=== PATIENT | female | born 1990 | race Caucasian/White ===

== ENCOUNTER 2017-07-18 18:44 | Emergency (ER) | payer MEDICAID ==
[2017-07-18 18:47] VITALS: BP 148/103; PULSE 91; RESP 18; TEMP 97.5; O2SAT 99
[2017-07-18] MEDS ORDERED: PAXI30TA7 PO (20:32)
[2017-07-18 20:46] LABS: AUTOMATED NEUTROPHIL # 5.6 TH/MM3 (1.8-7.7); BASOPHIL # 0.1 TH/MM3 (0-0.2); BASOPHIL % 0.6 % (0.0-2.0); EOSINOPHIL # 0.2 TH/MM3 (0-0.4); EOSINOPHIL % 1.8 % (0.0-4.0); HEMOGLOBIN 13.3 GM/DL (11.6-15.3); LYMPH % 32.8 % (9.0-44.0); LYMPHOCYTE # 3.1 TH/MM3 (1.0-4.8); MEAN CELL VOLUME 75.9 FL (80.0-100.0); MEAN CORPUSCULAR HEMOGLOBIN 25.9 PG (27.0-34.0); MEAN CORPUSCULAR HGB CONC 34.2 % (32.0-36.0); MEAN PLATELET VOLUME 8.9 FL (7.0-11.0); MONOCYTE # 0.5 TH/MM3 (0-0.9); NEUT % 59.8 % (16.0-70.0); PLATELET COUNT 239 TH/MM3 (150-450); RED BLOOD COUNT 5.14 MIL/MM3 (4.00-5.30); RED CELL DISTRIBUTION WIDTH 21.2 % (11.6-17.2); WHITE BLOOD COUNT 9.4 TH/MM3 (4.0-11.0)
[2017-07-18 21:03] LABS: AMORPHOUS SEDIMENT, URINE OCC; BACTERIA, URINE OCC /hpf; BILIRUBIN, URINE NEG (NEG); BLOOD, URINE LARGE (NEG); GLUCOSE,URINE NEG (NEG); KETONE, URINE TRACE mg/dL (NEG); NITRITE,URINE NEG (NEG); PH, URINE 6.5 (5.0-8.5); URINE LEUKOCYTE ESTERASE SMALL (NEG)
[2017-07-18 21:04] LABS: URINE COLOR RED (YELLW/STRAW)
[2017-07-18 21:11] LABS: BICARBONATE 30.4 MEQ/L (21.0-32.0); CALCIUM 8.4 MG/DL (8.5-10.1); CREATININE 0.65 MG/DL (0.50-1.00)
--- NOTE | 2017-07-18 21:52 | PD ---
HPI Chief Complaint: Complaint Time Seen by Provider: 21:36 Travel History International Travel<30 days: No Contact w/Intl Traveler<30days: No Traveled to known affect area: No History of Present Illness HPI 27-year-old female who reports a history of sickle cell anemia presents for evaluation of vaginal bleeding. She reports that she had an IUD placed in April 2017. Since then she has had vaginal bleeding. She reports bleeding, occasional clots, using approximately 4 pads a day. Associated with some crampy lower abdominal discomfort. Symptoms have persisted and this prompted evaluation today. She reports that the IUD was placed in [place] and she moved from [place] to [place] in May 2017. She has no local primary care physician or retention specialist. Denies fevers, chills, dysuria, flank pain. No other complaints. PFSH Past Medical History Sickle Cell Disease: Yes Tetanus Vaccination: > 5 Years Influenza Vaccination: No ?: Not LMP: been bleeding since april 2017 : 3 Para: 3 Past Surgical History Section: Yes (x3) Social History Alcohol Use: No Tobacco Use: No Substance Use: No Allergies-Medications (Allergen,Severity, Reaction): Coded Allergies: No Known Allergies (Unverified , 07/18/17) Reported Meds & Prescriptions Reported Meds & Active Scripts Active Reported Paxil (Paroxetine HCl) 30 Mg Tab 20 Mg PO DAILY Review of Systems Except as stated in HPI: all other systems reviewed are Neg Physical Exam Narrative GENERAL: Well-developed well-nourished female in no acute distress SKIN: Warm and dry. HEAD: Atraumatic. Normocephalic. EYES: Pupils equal and round. No scleral icterus. No injection or drainage. ENT: No nasal bleeding or discharge. Mucous membranes pink and moist. NECK: Trachea midline. No JVD. CARDIOVASCULAR: Regular rate and rhythm. No murmur appreciated. RESPIRATORY: No accessory muscle use. Clear to auscultation. Breath sounds equal bilaterally. GASTROINTESTINAL: Abdomen soft, non-tender, nondistended. Hepatic and splenic margins not palpable. Pelvic examination in the presence of a female nurse: The IUD is currently in the vagina. This was removed with forceps. There is some blood emanating from the cervical os. There is no cervical motion tenderness or adnexal tenderness. MUSCULOSKELETAL: No obvious deformities. No clubbing. No cyanosis. No edema. NEUROLOGICAL: Awake and alert. No obvious cranial nerve deficits. Motor grossly within normal limits. Normal speech. PSYCHIATRIC: Appropriate mood and affect; insight and judgment normal. Data Data Last Documented VS Vital Signs Date Time Temp Pulse Resp B/P (MAP) Pulse Ox O2 Delivery O2 Flow Rate FiO2 07/19/17 00:18 07/18/17 18:47 97.5 91 18 99 Orders Orders Urinalysis - C+S If Indicated (07/18/17 19:36) Complete Blood Count With Diff (07/18/17 19:36) Basic Metabolic Panel (Bmp) (07/18/17 19:36) Ed Urine Pregnancytest Poc (07/18/17 19:36) Urine Culture (07/18/17 20:00) Beta Hcg (Quant/Titer) (07/18/17 22:17) Gc And Chlamydia Pcr (07/18/17 22:22) Wet Prep Profile (07/18/17 22:22) Us Pelvis Comp W Doppler (07/18/17 22:22) Ed Discharge Order (07/18/17 23:54) Labs Laboratory Tests Test 07/18/17 20:00 07/18/17 20:30 07/18/17 22:25 Urine Color RED Urine Turbidity HAZY Urine pH 6.5 Urine Specific [place] 1.020 Urine Protein 100 mg/dL Urine Glucose (UA) NEG mg/dL Urine Ketones TRACE mg/dL Urine Occult Blood LARGE Urine Nitrite NEG Urine Bilirubin NEG Urine Urobilinogen LESS THAN 2.0 MG/DL Urine Leukocyte Esterase SMALL Urine RBC /hpf Urine WBC 13 /hpf Urine Amorphous Sediment OCC Urine Bacteria OCC /hpf Microscopic Urinalysis Comment CULTURE INDICATED White Blood Count 9.4 TH/MM3 Red Blood Count 5.14 MIL/MM3 Hemoglobin 13.3 GM/DL Hematocrit 39.0 % Mean Corpuscular Volume 75.9 FL Mean Corpuscular Hemoglobin 25.9 PG Mean Corpuscular Hemoglobin Concent 34.2 % Red Cell Distribution Width 21.2 % Platelet Count 239 TH/MM3 Mean Platelet Volume 8.9 FL Neutrophils (%) (Auto) 59.8 % Lymphocytes (%) (Auto) 32.8 % Monocytes (%) (Auto) 5.0 % Eosinophils (%) (Auto) 1.8 % Basophils (%) (Auto) 0.6 % Neutrophils # (Auto) 5.6 TH/MM3 Lymphocytes # (Auto) 3.1 TH/MM3 Monocytes # (Auto) 0.5 TH/MM3 Eosinophils # (Auto) 0.2 TH/MM3 Basophils # (Auto) 0.1 TH/MM3 CBC Comment DIFF FINAL Differential Comment Blood Urea Nitrogen 9 MG/DL Creatinine 0.65 MG/DL Random Glucose 123 MG/DL Calcium Level 8.4 MG/DL Sodium Level 139 MEQ/L Potassium Level 3.6 MEQ/L Chloride Level 105 MEQ/L Carbon Dioxide Level 30.4 MEQ/L Anion Gap 4 MEQ/L Estimat Glomerular Filtration Rate 108 ML/MIN Human Chorionic Gonadotropin, Quant LESS THAN 1 MIU/ML Clue Cells (Wet Prep) NONE SEEN Vaginal Trichomonas (Wet Prep) NONE SEEN Vaginal Yeast (Wet Prep) NONE SEEN Chlamydia trachomatis DNA (PCR) NOT DETECTED Neisseria gonorrhoeae DNA (PCR) NOT DETECTED MDM Medical Decision Making Medical Screen Exam Complete: Yes Emergency Medical Condition: Yes Medical Record Reviewed: Yes Differential Diagnosis Abnormal uterine bleeding, uterine fibroid, ectopic , intrauterine , anemia Narrative Course 27-year-old female who had IUD placement in April 2017 presents with vaginal bleeding since May 2017. Pelvic examination reveals that unfortunately the IUD has been expelled from the uterus and is currently in the vagina. This was removed. An ultrasound of the pelvis has been ordered. At the end of my shift the patient was signed out pending ultrasound results. Tu Manuel Jul 18, 2017 21:51
--- NOTE | 2017-07-18 22:59 | PD ---
Data Data Last Documented VS Vital Signs Date Time Temp Pulse Resp B/P (MAP) Pulse Ox O2 Delivery O2 Flow Rate FiO2 07/18/17 18:47 97.5 91 18 148/103 (118) 99 Orders Orders Urinalysis - C+S If Indicated (07/18/17 19:36) Complete Blood Count With Diff (07/18/17 19:36) Basic Metabolic Panel (Bmp) (07/18/17 19:36) Ed Urine Pregnancytest Poc (07/18/17 19:36) Urine Culture (07/18/17 20:00) Beta Hcg (Quant/Titer) (07/18/17 22:17) Gc And Chlamydia Pcr (07/18/17 22:22) Wet Prep Profile (07/18/17 22:22) Us Pelvis Comp W Doppler (07/18/17 22:22) Ed Discharge Order (07/18/17 23:54) Labs Laboratory Tests Test 07/18/17 20:00 07/18/17 20:30 07/18/17 22:25 Urine Color RED Urine Turbidity HAZY Urine pH 6.5 Urine Specific [place] 1.020 Urine Protein 100 mg/dL Urine Glucose (UA) NEG mg/dL Urine Ketones TRACE mg/dL Urine Occult Blood LARGE Urine Nitrite NEG Urine Bilirubin NEG Urine Urobilinogen LESS THAN 2.0 MG/DL Urine Leukocyte Esterase SMALL Urine RBC /hpf Urine WBC 13 /hpf Urine Amorphous Sediment OCC Urine Bacteria OCC /hpf Microscopic Urinalysis Comment CULTURE INDICATED White Blood Count 9.4 TH/MM3 Red Blood Count 5.14 MIL/MM3 Hemoglobin 13.3 GM/DL Hematocrit 39.0 % Mean Corpuscular Volume 75.9 FL Mean Corpuscular Hemoglobin 25.9 PG Mean Corpuscular Hemoglobin Concent 34.2 % Red Cell Distribution Width 21.2 % Platelet Count 239 TH/MM3 Mean Platelet Volume 8.9 FL Neutrophils (%) (Auto) 59.8 % Lymphocytes (%) (Auto) 32.8 % Monocytes (%) (Auto) 5.0 % Eosinophils (%) (Auto) 1.8 % Basophils (%) (Auto) 0.6 % Neutrophils # (Auto) 5.6 TH/MM3 Lymphocytes # (Auto) 3.1 TH/MM3 Monocytes # (Auto) 0.5 TH/MM3 Eosinophils # (Auto) 0.2 TH/MM3 Basophils # (Auto) 0.1 TH/MM3 CBC Comment DIFF FINAL Differential Comment Blood Urea Nitrogen 9 MG/DL Creatinine 0.65 MG/DL Random Glucose 123 MG/DL Calcium Level 8.4 MG/DL Sodium Level 139 MEQ/L Potassium Level 3.6 MEQ/L Chloride Level 105 MEQ/L Carbon Dioxide Level 30.4 MEQ/L Anion Gap 4 MEQ/L Estimat Glomerular Filtration Rate 108 ML/MIN Human Chorionic Gonadotropin, Quant LESS THAN 1 MIU/ML Clue Cells (Wet Prep) NONE SEEN Vaginal Trichomonas (Wet Prep) NONE SEEN Vaginal Yeast (Wet Prep) NONE SEEN MDM Medical Record Reviewed: Yes Supervised Visit with OLIVE: No Narrative Course During the course of the patient's emergency department visit, the patient's history, examination, and differential diagnosis were reviewed with the patient. The patient was placed on a court monitor with oximetry and frequent blood pressure monitoring. The patient had IV access obtained and blood work sent for analysis. The patient's case was checked out to me by Tu. Please see his complete history and physical. The patient's case was checked out to me at the conclusion of his shift. The patient is pending ultrasound of the pelvis. The patient's laboratory studies were reviewed and remarkable for a white count of 9.4, hemoglobin 13.3, platelets 239 with a normal differential, basic metabolic profile is remarkable for an anion gap of 4, glucose 123, calcium 8.4 , quantitative beta-hCG is less than 1, urinalysis shows small leukocyte esterase, RBCs innumerable, 13 WBCs, occasional bacteria, culture indicated. This urine is likely mainly contaminant from vaginal bleeding. Radiology studies were reviewed and remarkable for an ultrasound of the pelvis that shows normal findings, no free fluid. There is a prominent scar at the lower anterior uterine segment, otherwise no acute abnormality. The patient is resting comfortably and feels better, is alert and in no distress. The patient's results and examination findings were discussed with the patient. The repeat examination is unremarkable and benign. The history, exam, diagnostic testing, and current condition do not suggest any significant pathology to warrant further testing, continued ED treatment, admission, or surgical evaluation at this point. The vital signs have been stable. The patient does not have uncontrollable pain, intractable vomiting, or other significant symptoms. The patient's condition is stable and appropriate for discharge. The patient will pursue further outpatient evaluation with a primary care physician or other designated or consulting physician as indicated in the discharge instructions. The patient expressed understanding and was agreeable with this plan. Diagnosis Primary Impression: IUD migration Qualified Codes: T83.89XA - Other specified complication of genitourinary prosthetic devices, implants and grafts, initial encounter Additional Impression: Dysfunctional uterine bleeding Referrals: Danielle Neil MD 1 week [employer] [address] [facility] 1 week Patient Instructions: Dysfunctional Uterine Bleeding (ED), General Instructions Med/Other Pt SpecificInfo: No Change to Meds Disposition: 01 DISCHARGE HOME Condition: Stable Carola Resendez MD Jul 18, 2017 22:59
--- NOTE | 2017-07-18 23:20 | RADRPT ---
EXAM DATE/TIME: 07/18/2017 22:51 [place] COMPARISON: No previous studies available for comparison. INDICATIONS : Bleeding. MEDICAL HISTORY : Sickle cell disease. SURGICAL HISTORY : section. ENCOUNTER: Initial ACUITY: 4-6 months PAIN SCORE: 2/10 LOCATION: Bilateral pelvis MEASUREMENTS: UTERUS: 11.1 x 6.0 x 3.8 cm ENDOMETRIAL STRIPE: 6 mm RIGHT OVARY: 3.9 x 3.0 x 2.3 cm LEFT OVARY: 2.8 x 1.9 x 1.3 cm FINDINGS: UTERUS: The myometrium has homogeneous echotexture without mass. There is a prominent section scar. No focal endometrial abnormality is identified. RIGHT OVARY: Ovary contains no mass or significant cystic lesion. Follicles are present. Normal Doppler signal is documented. LEFT OVARY: Ovary contains no mass or significant cystic lesion. Normal Doppler signal is documented. MISCELLANEOUS: No free fluid. CONCLUSION: Normal transabdominal pelvis ultrasound. There is a prominent section scar at the low anteri or uterine segment of the uterus. Jhon Jiménez MD on July 18, 2017 at 23:17 Board Certified Radiologist. This report was verified electronically.
== END 2017-07-19 00:19 | disposition home or self-care (01) ==
LOC: NEPE 18:44
DX: T83.32XA Displacement of intrauterine contraceptive device, initial encounter (principal); N93.8 Other specified abnormal uterine and vaginal bleeding; D57.1 Sickle-cell disease without crisis; R82.71 Bacteriuria; Y76.2 Prosthetic and other implants, materials and accessory obstetric and gynecological devices associated with adverse incidents
CPT/HCPCS: 76856; 80048; 81001; 84702; 84703; 85025; 87086; 87210; 87491; 87591; 93975

== ENCOUNTER 2017-12-04 20:59 | Emergency (ER) | payer SELFPAY ==
[~2017-12-04] VITALS: Ht 154.9 cm; Wt 80.0 kg
[~2017-12-04 20:59] MED LIST: PAXI30TA7 PO
[2017-12-04 21:14] VITALS: BP 157/83; PULSE 99; RESP 16; TEMP 98.6; O2SAT 100
--- NOTE | 2017-12-04 21:26 | PD ---
HPI Chief Complaint: Flank/Kidney Pain Time Seen by Provider: 21:19 Travel History International Travel<30 days: No Contact w/Intl Traveler<30days: No Traveled to known affect area: No History of Present Illness HPI 26-year-old female who states she has history of sickle cell disease presents emergency department for evaluation right flank pain. This is been ongoing since this morning it is a constant ache. It is moderate in severity. She states it radiates around to her lower abdomen pelvis. She states she has a pressure there. She reports burning with urination. Denies any hematuria. She denies any nausea or vomiting. She has not had any fever or chills. She states she is not and her menstrual cycle was 2 weeks ago. She denies any chest pain or tightness. No difficulty breathing. She has no other symptoms to report. [facility] Past Medical History Blood Disorders: Yes Immunizations Current: Yes Sickle Cell Disease: Yes Tetanus Vaccination: Unknown Influenza Vaccination: No ?: Unknown LMP: 11/25/17 : 3 Para: 3 Past Surgical History Section: Yes (x3) Social History Alcohol Use: No Tobacco Use: No Substance Use: No Allergies-Medications (Allergen,Severity, Reaction): Coded Allergies: No Known Allergies (Unverified , 12/04/17) Reported Meds & Prescriptions Reported Meds & Active Scripts Active Reported Paxil (Paroxetine HCl) 30 Mg Tab 20 Mg PO DAILY Review of Systems Except as stated in HPI: all other systems reviewed are Neg Physical Exam Narrative GENERAL: Well-nourished female patient, ambulatory and in no acute distress. SKIN: Focused skin assessment warm/dry. HEAD: Atraumatic. Normocephalic. EYES: Pupils equal and round. No scleral icterus. No injection or drainage. ENT: No nasal bleeding or discharge. Mucous membranes pink and moist. NECK: Trachea midline. No JVD. CARDIOVASCULAR: Elevated rate and rhythm. No murmur appreciated. RESPIRATORY: No accessory muscle use. Clear to auscultation. Breath sounds equal bilaterally. GASTROINTESTINAL: Abdomen soft, non-tender, nondistended. No guarding. No rebound tenderness. Hepatic and splenic margins not palpable. Right CVA tenderness to palpation. MUSCULOSKELETAL: No obvious deformities. No clubbing. No cyanosis. No edema. NEUROLOGICAL: Awake and alert. No obvious cranial nerve deficits. Motor grossly within normal limits. Normal speech. PSYCHIATRIC: Appropriate mood and affect; insight and judgment normal. Data Data Last Documented VS Vital Signs Date Time Temp Pulse Resp B/P (MAP) Pulse Ox O2 Delivery O2 Flow Rate FiO2 12/04/17 21:14 98.6 99 16 157/83 (107) 100 Orders Orders Iv Access Insert/Monitor (12/04/17 21:23) Complete Blood Count With Diff (12/04/17 21:23) Basic Metabolic Panel (Bmp) (12/04/17 21:23) Urinalysis - C+S If Indicated (12/04/17 21:23) Ed Urine Pregnancytest Poc (12/04/17 21:23) Ct Abd/Pel W/O Iv Contrast (12/04/17 ) Sodium Chlor 0.9% 1000 Ml Inj (Ns 1000 M (12/04/17 21:30) Ketorolac Inj (Toradol Inj) (12/04/17 21:30) Labs Laboratory Tests Test 12/04/17 21:36 White Blood Count 11.2 TH/MM3 Red Blood Count 5.20 MIL/MM3 Hemoglobin 11.9 GM/DL Hematocrit 37.7 % Mean Corpuscular Volume 72.6 FL Mean Corpuscular Hemoglobin 22.9 PG Mean Corpuscular Hemoglobin Concent 31.6 % Red Cell Distribution Width 14.2 % Platelet Count 321 TH/MM3 Mean Platelet Volume 9.3 FL Neutrophils (%) (Auto) 59.3 % Lymphocytes (%) (Auto) 30.4 % Monocytes (%) (Auto) 8.5 % Eosinophils (%) (Auto) 1.0 % Basophils (%) (Auto) 0.8 % Neutrophils # (Auto) 6.6 TH/MM3 Lymphocytes # (Auto) 3.4 TH/MM3 Monocytes # (Auto) 1.0 TH/MM3 Eosinophils # (Auto) 0.1 TH/MM3 Basophils # (Auto) 0.1 TH/MM3 CBC Comment DIFF FINAL Differential Comment Urine Color YELLOW Urine Turbidity HAZY Urine pH 6.0 Urine Specific [place] 1.015 Urine Protein NEG mg/dL Urine Glucose (UA) NEG mg/dL Urine Ketones NEG mg/dL Urine Occult Blood NEG Urine Nitrite NEG Urine Bilirubin NEG Urine Urobilinogen 2.0 mg/dL Urine Leukocyte Esterase TRACE Urine RBC 1 /hpf Urine WBC 2 /hpf Urine Squamous Epithelial Cells 6 /hpf Urine Mucus FEW /lpf Microscopic Urinalysis Comment CULT NOT INDICATED Blood Urea Nitrogen 11 MG/DL Creatinine 0.83 MG/DL Random Glucose 86 MG/DL Calcium Level 8.6 MG/DL Sodium Level 139 MEQ/L Potassium Level 3.5 MEQ/L Chloride Level 105 MEQ/L Carbon Dioxide Level 24.1 MEQ/L Anion Gap 10 MEQ/L Estimat Glomerular Filtration Rate 81 ML/MIN MDM Medical Decision Making Medical Screen Exam Complete: Yes Emergency Medical Condition: Yes Medical Record Reviewed: Yes Differential Diagnosis UTI versus renal calculi versus renal colic versus muscle spasm versus strain Narrative Course 27-year-old female presents emergency department for evaluation right flank pain. Patient appears without distress. Vital signs are stable. Does have right CVA tenderness to palpation. I discussed the patient my attending physician. Basic lab work and CT imaging is ordered. Patient is treated for pain and given IV normal saline fluid bolus. Last Impressions Abdomen/Pelvis CT 12/04/17 0000 Signed Impressions: CONCLUSION: 1. Mild dilatation of right renal collecting system without evidence on CT for radiopaque calculus. 2. Mild constipation. Appendix normal. Small hiatal hernia. Findings are discussed with the pt. and my attending physician. Pt will be discharged home at this time Diagnosis Primary Impression: Right flank pain Referrals: [employer] Primary Care Physician Patient Instructions: Flank Pain (ED), General Instructions Additional Instructions: Follow up with a primary care provider Return to ED with acute worsening of symptoms Med/Other Pt SpecificInfo: No Change to Meds Disposition: 01 DISCHARGE HOME Condition: Stable DannyNicky GIFFORD Dec 04, 2017 21:26
[2017-12-04] MEDS ORDERED: KETOROLAC TROMETHAMINE 30 MG/ML (IVP) VIAL IV PUSH ONE (21:30)
[2017-12-04] MEDS ORDERED: SODIUM CHLOR 0.9% 1000 ML INJ 1,000 ML IV ONE (21:30)
[2017-12-04 21:54] LABS: AUTOMATED NEUTROPHIL # 6.6 TH/MM3 (1.8-7.7); BASOPHIL # 0.1 TH/MM3 (0-0.2); BASOPHIL % 0.8 % (0.0-2.0); EOSINOPHIL # 0.1 TH/MM3 (0-0.4); HEMATOCRIT 37.7 % (35.0-46.0); HEMOGLOBIN 11.9 GM/DL (11.6-15.3); LYMPH % 30.4 % (9.0-44.0); LYMPHOCYTE # 3.4 TH/MM3 (1.0-4.8); MEAN CELL VOLUME 72.6 FL (80.0-100.0); MEAN CORPUSCULAR HEMOGLOBIN 22.9 PG (27.0-34.0); MEAN CORPUSCULAR HGB CONC 31.6 % (32.0-36.0); MEAN PLATELET VOLUME 9.3 FL (7.0-11.0); MONO % 8.5 % (0.0-8.0); NEUT % 59.3 % (16.0-70.0); PLATELET COUNT 321 TH/MM3 (150-450); RED CELL DISTRIBUTION WIDTH 14.2 % (11.6-17.2); WHITE BLOOD COUNT 11.2 TH/MM3 (4.0-11.0)
[2017-12-04 21:57] LABS: BILIRUBIN, URINE NEG (NEG); BLOOD, URINE NEG (NEG); GLUCOSE,URINE NEG (NEG); KETONE, URINE NEG (NEG); MUCUS URINE FEW /lpf (OCC); NITRITE,URINE NEG (NEG); SQUAMOUS EPITHELIAL CELL URINE 6 /hpf (0-5); URINE COLOR YELLOW (YELLW/STRAW); URINE LEUKOCYTE ESTERASE TRACE (NEG)
[2017-12-04 22:03] LABS: BICARBONATE 24.1 MEQ/L (21.0-32.0); CALCIUM 8.6 MG/DL (8.5-10.1); CREATININE 0.83 MG/DL (0.50-1.00)
--- NOTE | 2017-12-04 22:56 | RADRPT ---
EXAM DATE: 12/04/2017 10:47 PM EDT AGE/SEX: 27 years / Female INDICATIONS: Right flank pain; possible renal calculus. CLINICAL DATA: This is the patient's initial encounter. Patient reports that signs and symptoms have been present for 1 day and indicates a pain score of 8/10. MEDICAL/SURGICAL HISTORY: None. section. RADIATION DOSE: 8.52 CTDI (mGy) COMPARISON: No prior exams available for comparison. TECHNIQUE: Multiple contiguous axial images were obtained through the abdomen. Images were obtained using multiple row detector helical technique. Using automated exposure control and adjustment of the mA and/or kV according to patient size, radiation dose was kept as low as reasonably achievable to o btain optimal diagnostic quality images. DICOM format image data is available electronically for rev iew and comparison. FINDINGS: Lung bases are clear. There is minimal dilatation of the right renal collecting system but no definit e ureteral calculus is identified. This could be related to recent stone passage or possibly a small nonradiopaque calculus. There is no significant perinephric stranding. No acute findings in the liver, spleen, adrenals, left kidney or pancreas. No free fluid. No bowel ob struction. No adenopathy. Small hiatal hernia. Mild constipation. CONCLUSION: 1. Mild dilatation of right renal collecting system without evidence on CT for radiopaque calculus. 2. Mild constipation. Appendix normal. Small hiatal hernia. Electronically signed by: Elvis Rice MD 12/04/2017 10:55 PM EDT
--- NOTE | 2017-12-05 03:27 | PD ---
Data Data Last Documented VS Vital Signs Date Time Temp Pulse Resp B/P (MAP) Pulse Ox O2 Delivery O2 Flow Rate FiO2 12/04/17 21:14 98.6 99 16 157/83 (107) 100 Orders Orders Iv Access Insert/Monitor (12/04/17 21:23) Complete Blood Count With Diff (12/04/17 21:23) Basic Metabolic Panel (Bmp) (12/04/17 21:23) Urinalysis - C+S If Indicated (12/04/17 21:23) Ed Urine Pregnancytest Poc (12/04/17 21:23) Ct Abd/Pel W/O Iv Contrast (12/04/17 ) Sodium Chlor 0.9% 1000 Ml Inj (Ns 1000 M (12/04/17 21:30) Ketorolac Inj (Toradol Inj) (12/04/17 21:30) Ed Discharge Order (12/04/17 23:10) Labs Laboratory Tests Test 12/04/17 21:36 White Blood Count 11.2 TH/MM3 Red Blood Count 5.20 MIL/MM3 Hemoglobin 11.9 GM/DL Hematocrit 37.7 % Mean Corpuscular Volume 72.6 FL Mean Corpuscular Hemoglobin 22.9 PG Mean Corpuscular Hemoglobin Concent 31.6 % Red Cell Distribution Width 14.2 % Platelet Count 321 TH/MM3 Mean Platelet Volume 9.3 FL Neutrophils (%) (Auto) 59.3 % Lymphocytes (%) (Auto) 30.4 % Monocytes (%) (Auto) 8.5 % Eosinophils (%) (Auto) 1.0 % Basophils (%) (Auto) 0.8 % Neutrophils # (Auto) 6.6 TH/MM3 Lymphocytes # (Auto) 3.4 TH/MM3 Monocytes # (Auto) 1.0 TH/MM3 Eosinophils # (Auto) 0.1 TH/MM3 Basophils # (Auto) 0.1 TH/MM3 CBC Comment DIFF FINAL Differential Comment Urine Color YELLOW Urine Turbidity HAZY Urine pH 6.0 Urine Specific [place] 1.015 Urine Protein NEG mg/dL Urine Glucose (UA) NEG mg/dL Urine Ketones NEG mg/dL Urine Occult Blood NEG Urine Nitrite NEG Urine Bilirubin NEG Urine Urobilinogen 2.0 mg/dL Urine Leukocyte Esterase TRACE Urine RBC 1 /hpf Urine WBC 2 /hpf Urine Squamous Epithelial Cells 6 /hpf Urine Mucus FEW /lpf Microscopic Urinalysis Comment CULT NOT INDICATED Blood Urea Nitrogen 11 MG/DL Creatinine 0.83 MG/DL Random Glucose 86 MG/DL Calcium Level 8.6 MG/DL Sodium Level 139 MEQ/L Potassium Level 3.5 MEQ/L Chloride Level 105 MEQ/L Carbon Dioxide Level 24.1 MEQ/L Anion Gap 10 MEQ/L Estimat Glomerular Filtration Rate 81 ML/MIN MDM Supervised Visit with OLIVE: Yes Narrative Course The history, exam, and medical decision-making in the associated mid-level provider note were completed with my assistance. I reviewed and agree with the findings presented. I attest that I had a [id number] encounter with the patient on the same day, and personally performed and documented my assessment and findings in the medical record. *My assessment and Findings: The 27-year-old woman who presents emerged [place] lower abdominal discomfort, little bit worse on the left. She states she has a history of sickle cell anemia. She has not been anemic on the past blood tests that we have. She does have a little bit of microcytic indices. Nonetheless she is a very benign exam. We did a CT scan to look for stone that showed a little bit of a hydronephrosis but no definite stone. Reviewed previous visits as well. I think she is safe for outpatient follow-up. We will treat her presumptively for small stone. Diagnosis Primary Impression: Right flank pain Referrals: [employer] Primary Care Physician Patient Instructions: General Instructions, Flank Pain (ED) Departure Forms: Work Release, Enter return to work date: Dec 05, 2017 Tests/Procedures Additional Instruction: Follow up with a primary care provider Return to ED with acute worsening of symptoms Disposition: 01 DISCHARGE HOME Condition: Stable Samuel Regan MD Dec 05, 2017 03:27
== END 2017-12-04 23:22 | disposition home or self-care (01) ==
LOC: NEPE 20:59
DX: R10.31 Right lower quadrant pain (principal); R30.0 Dysuria; Z86.2 Personal history of diseases of the blood and blood-forming organs and certain disorders involving the immune mechanism
CPT/HCPCS: 74176; 80048; 81001; 84703; 85025; 96361; 96374; 99284; J1885; J7030